=== PATIENT | male | born 1940 | race Caucasian/White ===

== ENCOUNTER 2020-04-27 09:53 | Inpatient (IN) | payer MEDICARE, OTHER ==
[~2020-04-27] VITALS: Ht 177.8 cm; Wt 75.3 kg
[2020-04-27] VITALS (10 sets, daily range): BP systolic 155–219; BP diastolic 58–93
[~2020-04-27 09:53] MED LIST: AMLO-258 PO; CETI10TA86 PO; CILO100T PO; DOXY100T2 PO; FURO20TA6 PO; GLIP10TA9 PO; HYDR-3420 PO; LISI-613 PO; METF-446 PO; METO50TA18 PO; PRED20TA3 PO; PRIM50TA23 PO
[2020-04-27 10:51] LABS: BASOPHILS % (AUTO) 0.9 % (0.0-5.0); EOSINOPHILS % (AUTO) 2.4 % (0.0-8.0); HEMATOCRIT 43.8 % (42-54); LYMPHOCYTES % (AUTO) 15.6 % (21.0-51.0); MEAN CORPUSCULAR HGB CONC 33.8 g/dL (32.0-36.0); MEAN CORPUSCULAR VOLUME 91.6 fL (79-99); MONOCYTES % (AUTO) 6.1 % (3.0-13.0); NEUTROPHILS % (AUTO) 74.5 % (40.0-77.0); PLATELET COUNT (AUTO) 320 K/uL (130-400); RED BLOOD CELL COUNT(AUTO) 4.78 MIL/uL (4.50-6.20); RED CELL DISTRIBUTION WIDTH 12.3 % (11.0-15.5); WHITE BLOOD COUNT (AUTO) 7.8 K/uL (4.8-10.8)
[2020-04-27 11:10] LABS: CREATININE 1.1 mg/dL (0.5-1.5); POTASSIUM 5.1 mmol/L (3.5-5.1)
[2020-04-27 11:16] LABS: ALBUMIN 3.4 g/dL (3.5-5.0); BILIRUBIN,TOTAL 0.3 mg/dL (0.2-1.0); TOTAL PROTEIN, SERUM 7.4 g/dL (6.0-8.3)
[2020-04-27 11:28] LABS: INR 0.88 (0.85-1.15); PARTIAL THROMBOPLASTIN TIME 27.2 SEC (26.3-35.5); PROTHROMBIN TIME 9.5 SEC (9.6-11.6)
[2020-04-27 12:31] LABS: APPEARANCE,URINE Clear (CLEAR); BILIRUBIN,URINE Negative (NEGATIVE); COLOR,URINE Yellow (YELLOW); GLUCOSE, URINE (UA) 500 mg/dL (NEGATIVE); KETONES,URINE Trace mg/dL (NEGATIVE); LEUKOCYTE ESTERASE ,URINE Negative (NEGATIVE); NITRATE,URINE Negative (NEGATIVE); OCCULT BLOOD,URINE Negative (NEGATIVE); PH,URINE 6.5 (5.0-8.0); PROTEIN,URINE 300 mg/dL (NEGATIVE); UROBILINOGEN,URINE 0.2 mg/dL (0.2-1.0)
[2020-04-27 13:54] LABS: BACTERIA,URINE Rare /HPF (None Seen); MUCUS,URINE Rare LPF (None Seen); RBC,URINE 0-1 /HPF (0-1); SQUAMOUS EPITHELIAL CELL,UR Rare /HPF (0-2); WBC,URINE 0-1 /HPF (0-1)
[2020-04-27] MEDS ORDERED: HYDRALAZINE HCL 20 MG/ML VIAL IV STA (14:58)
[2020-04-27] MEDS ORDERED: ALBUTEROL SULFATE 0.083% 2.5 MG/3 ML INH IH PRN (15:00)
[2020-04-27] MEDS: INSULIN HUMULIN R 100 UNIT/ML 3ML SQ SCH ×2 (16:30→22:00)
[2020-04-27] MEDS ORDERED: HYDRALAZINE HCL 10 MG TABLET ONE (17:23)
[2020-04-27] MEDS: HYDRALAZINE HCL 10 MG TABLET PO SCH (21:12)
[2020-04-27] MEDS ORDERED: ENALAPRILAT DIHYDRATE 1.25MG/ML 1ML VIAL IV SCH (21:45)
[2020-04-28] VITALS (50 sets, daily range): BP systolic 138–203; BP diastolic 46–96
[2020-04-28] MEDS ORDERED: NICARDIPINE HCL 25 MG/10 ML ML IV ONE (01:33)
[2020-04-28 04:04] LABS: BASOPHILS % (AUTO) 0.8 % (0.0-5.0); HEMATOCRIT 39.6 % (42-54); LYMPHOCYTES % (AUTO) 12.4 % (21.0-51.0); MEAN CORPUSCULAR HEMOGLOBIN 30.9 pg (27.0-33.0); MEAN CORPUSCULAR HGB CONC 33.8 g/dL (32.0-36.0); MEAN CORPUSCULAR VOLUME 91.2 fL (79-99); MONOCYTES % (AUTO) 7.8 % (3.0-13.0); NEUTROPHILS % (AUTO) 76.6 % (40.0-77.0); PLATELET COUNT (AUTO) 294 K/uL (130-400); RED BLOOD CELL COUNT(AUTO) 4.34 MIL/uL (4.50-6.20); RED CELL DISTRIBUTION WIDTH 12.1 % (11.0-15.5); WHITE BLOOD COUNT (AUTO) 7.9 K/uL (4.8-10.8)
[2020-04-28] MEDS: INSULIN HUMULIN R 100 UNIT/ML 3ML SQ SCH ×4 (05:56→23:01)
[2020-04-28] MEDS: FAMOTIDINE/PF 20 MG/2 ML VIAL IV SCH (07:55)
[2020-04-28] MEDS: HYDRALAZINE HCL 10 MG TABLET PO SCH (07:55)
[2020-04-28] MEDS: NICARDIPINE HCL 25 MG in SODIUM CHLORIDE 0.9% 240 ML IV PRN ×2 (08:57→16:30)
[2020-04-28] MEDS ORDERED: AMLODIPINE BESYLATE 5 MG TAB PO SCH (09:00)
[2020-04-28] MEDS: NIFEDIPINE 10 MG CAP PO SCH ×2 (13:23→20:33)
[2020-04-28] MEDS ORDERED: HYDRALAZINE HCL 10 MG TABLET PO SCH (14:00)
[2020-04-28 15:29] LABS: AMPHET/METH SCREEN,URINE NEGATIVE (NEGATIVE); BARBITURATE SCREEN, URINE NEGATIVE (NEGATIVE); BENZODIAZEPINES SCREEN,URINE NEGATIVE (NEGATIVE); CANNABINOID SCREEN,URINE NEGATIVE (NEGATIVE); COCAINE SCREEN,URINE NEGATIVE (NEGATIVE); OPIATE SCREEN,URINE NEGATIVE (NEGATIVE); PHENCYCLIDINE SCREEN,URINE NEGATIVE (NEGATIVE)
[2020-04-28] MEDS: HYDRALAZINE HCL 25 MG TABLET PO SCH (20:33)
[2020-04-28] MEDS: ENALAPRILAT DIHYDRATE 1.25MG/ML 1ML VIAL IV PRN (23:55)
[2020-04-29] VITALS (40 sets, daily range): BP systolic 123–183; BP diastolic 44–101
[2020-04-29 04:00] LABS: HEMATOCRIT 42.7 % (42-54); MEAN CORPUSCULAR HEMOGLOBIN 31.5 pg (27.0-33.0); MEAN CORPUSCULAR HGB CONC 34.7 g/dL (32.0-36.0); MEAN CORPUSCULAR VOLUME 90.9 fL (79-99); RED BLOOD CELL COUNT(AUTO) 4.7 MIL/uL (4.50-6.20); RED CELL DISTRIBUTION WIDTH 11.9 % (11.0-15.5); WHITE BLOOD COUNT (AUTO) 7.4 K/uL (4.8-10.8)
[2020-04-29 04:17] LABS: CARBON DIOXIDE 27 mmol/L (21-32); CHLORIDE 106 mmol/L (101-111); CREATININE 1.2 mg/dL (0.5-1.5); GLOMERULAR FILTR. RATE CALC 62 mL/min (>60); GLUCOSE,RANDOM 88 mg/dL (70-105); POTASSIUM 3.5 mmol/L (3.5-5.1); SODIUM SERUM 142 mmol/L (136-145); THYROID STIMULATING HORMONE 1.74 uIU/mL (0.36-3.74); UREA NITROGEN, BLOOD 28 mg/dL (7-18)
[2020-04-29] MEDS: ENALAPRILAT DIHYDRATE 1.25MG/ML 1ML VIAL IV PRN (05:42)
[2020-04-29] MEDS: HYDRALAZINE HCL 25 MG TABLET PO SCH ×2 (05:47→13:05)
[2020-04-29] MEDS: INSULIN HUMULIN R 100 UNIT/ML 3ML SQ SCH ×4 (07:30→21:00)
[2020-04-29] MEDS ORDERED: LISI40TA4 PO (07:50)
[2020-04-29] MEDS: FAMOTIDINE/PF 20 MG/2 ML VIAL IV SCH (08:43)
[2020-04-29] MEDS: NIFEDIPINE 10 MG CAP PO SCH ×2 (08:43→13:05)
[2020-04-29] MEDS: NICARDIPINE HCL 25 MG in SODIUM CHLORIDE 0.9% 240 ML IV PRN ×3 (11:51→20:50)
[2020-04-29] MEDS ORDERED: FUROSEMIDE 10 MG/ML 2ML VIAL IV SCH (14:52)
[2020-04-29] MEDS: SPIRONOLACTONE 25 MG TAB PO SCH (14:56)
[2020-04-29] MEDS: CLOPIDOGREL BISULFATE 75 MG TAB PO SCH (14:56)
[2020-04-29] MEDS: LOSARTAN 100 MG TABLET PO SCH (14:56)
[2020-04-29] MEDS: ENOXAPARIN SODIUM 40 MG/0.4 ML SYRINGE SQ SCH (15:04)
[2020-04-29] MEDS: METFORMIN HCL 500 MG TABLET PO SCH (16:45)
[2020-04-29] MEDS: GLIPIZIDE 5 MG TABLET PO SCH (16:45)
[2020-04-29] MEDS: MINOXIDIL 2.5 MG TAB PO SCH ×2 (17:41→20:32)
[2020-04-29] MEDS: ATORVASTATIN CALCIUM 40 MG TABLET PO SCH (20:28)
[2020-04-29] MEDS ORDERED: COMPOUND IV MISC 1 EACH IVSOLN MISC PRN (20:30)
[2020-04-29] MEDS: PRIMIDONE 50 MG TAB PO SCH (20:32)
[2020-04-29] MEDS: CILOSTAZOL 100 MG TAB PO SCH (20:32)
[2020-04-29] MEDS ORDERED: PRIMIDONE 50 MG TAB PO SCH (21:00)
[2020-04-29] MEDS ORDERED: METOPROLOL TARTRATE 50 MG TAB PO SCH (21:00)
[2020-04-30] VITALS (73 sets, daily range): BP systolic 122–184; BP diastolic 46–102
[2020-04-30 03:31] LABS: HEMATOCRIT 37.9 % (42-54); MEAN CORPUSCULAR HEMOGLOBIN 31.1 pg (27.0-33.0); MEAN CORPUSCULAR HGB CONC 33.8 g/dL (32.0-36.0); MEAN CORPUSCULAR VOLUME 92.2 fL (79-99); RED BLOOD CELL COUNT(AUTO) 4.11 MIL/uL (4.50-6.20); RED CELL DISTRIBUTION WIDTH 12.4 % (11.0-15.5); WHITE BLOOD COUNT (AUTO) 7.3 K/uL (4.8-10.8)
[2020-04-30 04:07] LABS: CREATININE 1.2 mg/dL (0.5-1.5); POTASSIUM 3.9 mmol/L (3.5-5.1)
[2020-04-30] MEDS: NICARDIPINE HCL 25 MG in SODIUM CHLORIDE 0.9% 240 ML IV PRN ×2 (04:14→13:18)
[2020-04-30] MEDS ORDERED: FUROSEMIDE 10 MG/ML 2ML VIAL IV SCH (05:00)
[2020-04-30] MEDS: INSULIN HUMULIN R 100 UNIT/ML 3ML SQ SCH ×4 (06:30→21:36)
[2020-04-30] MEDS: GLIPIZIDE 5 MG TABLET PO SCH ×2 (07:30→16:52)
[2020-04-30] MEDS: METFORMIN HCL 500 MG TABLET PO SCH ×2 (07:30→16:51)
[2020-04-30] MEDS: FAMOTIDINE/PF 20 MG/2 ML VIAL IV SCH (08:15)
[2020-04-30] MEDS: CILOSTAZOL 100 MG TAB PO SCH ×2 (08:16→21:39)
[2020-04-30] MEDS: AMLODIPINE BESYLATE 5 MG TAB PO SCH (08:16)
[2020-04-30] MEDS: ENOXAPARIN SODIUM 40 MG/0.4 ML SYRINGE SQ SCH (08:16)
[2020-04-30] MEDS: SPIRONOLACTONE 25 MG TAB PO SCH (08:16)
[2020-04-30] MEDS: CLOPIDOGREL BISULFATE 75 MG TAB PO SCH (08:17)
[2020-04-30] MEDS: PRIMIDONE 50 MG TAB PO SCH ×2 (08:18→21:40)
[2020-04-30] MEDS: MINOXIDIL 2.5 MG TAB PO SCH ×2 (08:40→21:38)
[2020-04-30] MEDS: LOSARTAN 100 MG TABLET PO SCH (08:40)
[2020-04-30] MEDS ORDERED: LISINOPRIL 40 MG TABLET PO SCH (09:00)
[2020-04-30] MEDS ORDERED: VANCOMYCIN 1GM+NS 250ML 250 ML IV PRN (11:30)
[2020-04-30] MEDS ORDERED: CEFAZOLIN SODIUM 1 GM VIAL ONE (14:26)
[2020-04-30] MEDS ORDERED: BUPIVACAINE/PF 0.25% 30ML VIAL IJ ONE (14:26)
[2020-04-30] MEDS ORDERED: IOHEXOL-350 50ML VIAL IV ONE (14:27)
[2020-04-30] MEDS ORDERED: MIDAZOLAM HCL 1 MG/ML 2ML VIAL ONE (14:27)
[2020-04-30] MEDS ORDERED: LIDOCAINE HCL 1% MDV 50ML VIAL ONE (14:28)
[2020-04-30] MEDS ORDERED: FENTANYL CITRATE PF 50 MCG/1 ML 2ML VIAL ONE (14:28)
[2020-04-30] MEDS ORDERED: VANCOMYCIN 1GM+NS 250ML 500 ML IV ONE (14:47)
[2020-04-30] MEDS ORDERED: OCTYL 2-CYANOACRYLATE 1 EACH TP ONE (15:30)
[2020-04-30] MEDS ORDERED: CARVEDILOL 12.5 MG TABLET PO ONE (17:45)
[2020-04-30] MEDS ORDERED: CARVEDILOL 12.5 MG TABLET PO SCH (18:00)
[2020-04-30] MEDS: ATORVASTATIN CALCIUM 40 MG TABLET PO SCH (21:39)
[2020-04-30] MEDS: CARVEDILOL 12.5 MG TABLET PO SCH (21:39)
[2020-05-01] VITALS (36 sets, daily range): BP systolic 110–183; BP diastolic 37–94
[2020-05-01] MEDS: GLIPIZIDE 5 MG TABLET PO SCH ×2 (06:29→16:29)
[2020-05-01] MEDS: INSULIN HUMULIN R 100 UNIT/ML 3ML SQ SCH ×4 (06:31→21:00)
[2020-05-01] MEDS: FAMOTIDINE/PF 20 MG/2 ML VIAL IV SCH (07:40)
[2020-05-01] MEDS: AMLODIPINE BESYLATE 5 MG TAB PO SCH (07:40)
[2020-05-01] MEDS: METFORMIN HCL 500 MG TABLET PO SCH ×2 (07:40→16:29)
[2020-05-01] MEDS: LOSARTAN 100 MG TABLET PO SCH (07:40)
[2020-05-01] MEDS: PRIMIDONE 50 MG TAB PO SCH ×2 (08:07→21:41)
[2020-05-01] MEDS: SPIRONOLACTONE 25 MG TAB PO SCH (08:07)
[2020-05-01] MEDS: CARVEDILOL 12.5 MG TABLET PO SCH ×2 (08:08→21:41)
[2020-05-01] MEDS: CLOPIDOGREL BISULFATE 75 MG TAB PO SCH (08:08)
[2020-05-01] MEDS: ENOXAPARIN SODIUM 40 MG/0.4 ML SYRINGE SQ SCH (08:09)
[2020-05-01] MEDS: MINOXIDIL 2.5 MG TAB PO SCH ×2 (08:48→21:40)
[2020-05-01] MEDS: CILOSTAZOL 100 MG TAB PO SCH ×2 (08:48→21:41)
[2020-05-01] MEDS: ENALAPRILAT DIHYDRATE 1.25MG/ML 1ML VIAL IV PRN (17:12)
[2020-05-01] MEDS: ATORVASTATIN CALCIUM 40 MG TABLET PO SCH (21:41)
[2020-05-02] VITALS (21 sets, daily range): BP systolic 119–184; BP diastolic 46–100
[2020-05-02] MEDS: INSULIN HUMULIN R 100 UNIT/ML 3ML SQ SCH ×4 (06:25→21:00)
[2020-05-02] MEDS: GLIPIZIDE 5 MG TABLET PO SCH ×2 (06:27→15:48)
[2020-05-02] MEDS: SPIRONOLACTONE 25 MG TAB PO SCH (07:54)
[2020-05-02] MEDS: MINOXIDIL 2.5 MG TAB PO SCH ×2 (07:55→21:36)
[2020-05-02] MEDS: METFORMIN HCL 500 MG TABLET PO SCH ×2 (07:55→15:49)
[2020-05-02] MEDS: LOSARTAN 100 MG TABLET PO SCH (07:55)
[2020-05-02] MEDS: PRIMIDONE 50 MG TAB PO SCH ×2 (07:55→21:36)
[2020-05-02] MEDS: AMLODIPINE BESYLATE 5 MG TAB PO SCH (07:56)
[2020-05-02] MEDS: CLOPIDOGREL BISULFATE 75 MG TAB PO SCH (07:56)
[2020-05-02] MEDS: CARVEDILOL 12.5 MG TABLET PO SCH ×2 (07:56→21:36)
[2020-05-02] MEDS: CILOSTAZOL 100 MG TAB PO SCH ×2 (07:57→21:38)
[2020-05-02] MEDS: FAMOTIDINE/PF 20 MG/2 ML VIAL IV SCH (07:57)
[2020-05-02] MEDS: ENOXAPARIN SODIUM 40 MG/0.4 ML SYRINGE SQ SCH (07:58)
[2020-05-02] MEDS: ENALAPRILAT DIHYDRATE 1.25MG/ML 1ML VIAL IV PRN (18:26)
[2020-05-02] MEDS: ATORVASTATIN CALCIUM 40 MG TABLET PO SCH (21:35)
[2020-05-03] VITALS (22 sets, daily range): BP systolic 119–201; BP diastolic 56–93
[2020-05-03] MEDS: GLIPIZIDE 5 MG TABLET PO SCH ×2 (07:13→17:18)
[2020-05-03] MEDS: METFORMIN HCL 500 MG TABLET PO SCH ×2 (07:13→17:17)
[2020-05-03] MEDS: INSULIN HUMULIN R 100 UNIT/ML 3ML SQ SCH ×4 (07:14→21:00)
[2020-05-03] MEDS ORDERED: FAMOTIDINE 20MG TAB 20 MG TAB ONE (08:45)
[2020-05-03] MEDS: FAMOTIDINE/PF 20 MG/2 ML VIAL IV SCH (09:00)
[2020-05-03] MEDS: MINOXIDIL 2.5 MG TAB PO SCH ×2 (09:14→20:40)
[2020-05-03] MEDS: CLOPIDOGREL BISULFATE 75 MG TAB PO SCH (09:14)
[2020-05-03] MEDS: CARVEDILOL 12.5 MG TABLET PO SCH ×2 (09:14→20:41)
[2020-05-03] MEDS: LOSARTAN 100 MG TABLET PO SCH (09:14)
[2020-05-03] MEDS: AMLODIPINE BESYLATE 5 MG TAB PO SCH (09:14)
[2020-05-03] MEDS: SPIRONOLACTONE 25 MG TAB PO SCH (09:14)
[2020-05-03] MEDS: CILOSTAZOL 100 MG TAB PO SCH ×2 (09:14→20:59)
[2020-05-03] MEDS: PRIMIDONE 50 MG TAB PO SCH ×2 (09:14→20:41)
[2020-05-03] MEDS: ENOXAPARIN SODIUM 40 MG/0.4 ML SYRINGE SQ SCH (09:15)
[2020-05-03] MEDS: ENALAPRILAT DIHYDRATE 1.25MG/ML 1ML VIAL IV PRN ×2 (12:16→15:09)
[2020-05-03] MEDS ORDERED: HYDRALAZINE HCL 10 MG TABLET ONE (16:46)
[2020-05-03] MEDS: HYDRALAZINE HCL 10 MG TABLET PO SCH ×2 (17:00→20:40)
[2020-05-03] MEDS: ATORVASTATIN CALCIUM 40 MG TABLET PO SCH (20:41)
[2020-05-04] VITALS (8 sets, daily range): BP systolic 131–154; BP diastolic 54–87
[2020-05-04] MEDS: INSULIN HUMULIN R 100 UNIT/ML 3ML SQ SCH (07:30)
[2020-05-04] MEDS ORDERED: HYDR-3420 PO (07:47)
[2020-05-04] MEDS ORDERED: CARV12.580 PO (07:47)
[2020-05-04] MEDS ORDERED: CLOP75TA14 PO (07:47)
[2020-05-04] MEDS ORDERED: LOSA100T2 PO (07:47)
[2020-05-04] MEDS ORDERED: MINO2.5 PO (07:47)
[2020-05-04] MEDS ORDERED: SPIR25TA PO (07:47)
[2020-05-04] MEDS: MINOXIDIL 2.5 MG TAB PO SCH (08:39)
[2020-05-04] MEDS: SPIRONOLACTONE 25 MG TAB PO SCH (08:39)
[2020-05-04] MEDS: CARVEDILOL 12.5 MG TABLET PO SCH (08:40)
[2020-05-04] MEDS: HYDRALAZINE HCL 10 MG TABLET PO SCH (08:40)
[2020-05-04] MEDS: CLOPIDOGREL BISULFATE 75 MG TAB PO SCH (08:40)
[2020-05-04] MEDS: PRIMIDONE 50 MG TAB PO SCH (08:40)
[2020-05-04] MEDS: METFORMIN HCL 500 MG TABLET PO SCH (08:40)
[2020-05-04] MEDS: LOSARTAN 100 MG TABLET PO SCH (08:41)
[2020-05-04] MEDS: GLIPIZIDE 5 MG TABLET PO SCH (08:41)
[2020-05-04] MEDS: AMLODIPINE BESYLATE 5 MG TAB PO SCH (08:41)
[2020-05-04] MEDS: ENOXAPARIN SODIUM 40 MG/0.4 ML SYRINGE SQ SCH (08:42)
[2020-05-04] MEDS ORDERED: FAMOTIDINE 20MG TAB 20 MG TAB PO SCH (09:00)
[2020-05-18] MEDS ORDERED: AMLO-257 PO (23:55)
[2020-05-18] MEDS ORDERED: POTA20TA82 PO (23:55)
[2020-05-18] MEDS ORDERED: PRIM50TA23 PO (23:55)
== END 2020-05-04 11:00 | disposition home or self-care (01) | DRG 242 ==
LOC: EDH 09:53 → EDHIP 14:03 → 2DH 20:56
PROVIDERS: ADMIT Hospitalist; ATTEND Hospitalist
PROC: 0JH606Z Insertion of Pacemaker, Dual Chamber into Chest Subcutaneous Tissue and Fascia, Open Approach (ICD-10-PCS; principal; 2020-04-30)
PROC: 02HK3JZ Insertion of Pacemaker Lead into Right Ventricle, Percutaneous Approach (ICD-10-PCS; 2020-04-30)
PROC: 02H63JZ Insertion of Pacemaker Lead into Right Atrium, Percutaneous Approach (ICD-10-PCS; 2020-04-30)
DX: I44.1 Atrioventricular block, second degree (principal); I50.33 Acute on chronic diastolic (congestive) heart failure; I16.1 Hypertensive emergency; J98.11 Atelectasis; I11.0 Hypertensive heart disease with heart failure; R00.1 Bradycardia, unspecified; J44.9 Chronic obstructive pulmonary disease, unspecified; I25.10 Atherosclerotic heart disease of native coronary artery without angina pectoris; I27.20 Pulmonary hypertension, unspecified; E11.51 Type 2 diabetes mellitus with diabetic peripheral angiopathy without gangrene; E78.5 Hyperlipidemia, unspecified; G25.0 Essential tremor; H91.93 Unspecified hearing loss, bilateral; I70.0 Atherosclerosis of aorta; Z60.2 Problems related to living alone; Z88.6 Allergy status to analgesic agent; Z87.891 Personal history of nicotine dependence; Z79.02 Long term (current) use of antithrombotics/antiplatelets; Z79.84 Long term (current) use of oral hypoglycemic drugs; Z79.899 Other long term (current) drug therapy; Z97.4 Presence of external hearing-aid; Z82.3 Family history of stroke; Z82.49 Family history of ischemic heart disease and other diseases of the circulatory system
CPT/HCPCS: 33208; 36415; 71045; 80048; 80053; 80061; 80305; 81001; 82550; 82948; 83880; 84145; 84443; 84484; 85025; 85027; 85610; 85730; 93005; 93306; 93925; 93975; 94664; 99156; 99157; C1785; J0690; J1650; J1815; J1940; J2250; J3010; J3370; J3490; J7050; Q9967

== ENCOUNTER 2020-05-29 22:08 | Inpatient (IN) | payer OTHER ==
[~2020-05-29] VITALS: Ht 177.8 cm; Wt 71.1 kg
[~2020-05-29 22:08] MED LIST changes: +AMLO-257 PO; -AMLO-258 PO; +CARV12.580 PO; -CETI10TA86 PO; +CLOP75TA14 PO; -DOXY100T2 PO; -FURO20TA6 PO; -HYDR-3420 PO; -LISI-613 PO; +LOSA100T2 PO; -METO50TA18 PO; +MINO2.5 PO; +POTA20TA82 PO; -PRED20TA3 PO; +SPIR25TA PO
[2020-05-29] MEDS ORDERED: METHYLPREDNISOLONE SOD SUCC 125MG/2ML VIAL ONE (22:31)
[2020-05-29 22:35] LABS: ABG BASE EXCESS -4.3 mmol/L (-2.0-3.0); ABG HCO3 19.7 mmol/L (21.0-28.0); ABG OXYGEN SATURATION 96.5 % (95.0-99.0); ABG PCO2 34 mmHg (35-48)
[2020-05-29] MEDS ORDERED: IPRATROPIUM/ALBUTEROL SULFATE 3 ML SOLUTION IH ONE (22:38)
[2020-05-29 22:43] LABS: BASOPHILS % (AUTO) 0.5 % (0.0-5.0); EOSINOPHILS % (AUTO) 0.9 % (0.0-8.0); HEMATOCRIT 37.1 % (42-54); LYMPHOCYTES % (AUTO) 7.6 % (21.0-51.0); MEAN CORPUSCULAR HEMOGLOBIN 31.9 pg (27.0-33.0); MEAN CORPUSCULAR HGB CONC 33.7 g/dL (32.0-36.0); MEAN CORPUSCULAR VOLUME 94.6 fL (79-99); MONOCYTES % (AUTO) 4.8 % (3.0-13.0); NEUTROPHILS % (AUTO) 85.6 % (40.0-77.0); PLATELET COUNT (AUTO) 281 K/uL (130-400); RED BLOOD CELL COUNT(AUTO) 3.92 MIL/uL (4.50-6.20); RED CELL DISTRIBUTION WIDTH 12.4 % (11.0-15.5)
[2020-05-29 22:50] LABS: ALBUMIN 3.1 g/dL (3.5-5.0); BILIRUBIN,TOTAL 0.4 mg/dL (0.2-1.0); CREATININE 1.2 mg/dL (0.5-1.5); POTASSIUM 4.3 mmol/L (3.5-5.1); TOTAL PROTEIN, SERUM 6.7 g/dL (6.0-8.3)
[2020-05-29 22:52] LABS: APPEARANCE,URINE Clear (CLEAR); BILIRUBIN,URINE Negative (NEGATIVE); COLOR,URINE Yellow (YELLOW); GLUCOSE, URINE (UA) >=1000 mg/dL (NEGATIVE); KETONES,URINE Negative (NEGATIVE); LEUKOCYTE ESTERASE ,URINE Negative (NEGATIVE); NITRATE,URINE Negative (NEGATIVE); OCCULT BLOOD,URINE Negative (NEGATIVE); PROTEIN,URINE POS 2+ mg/dL (NEGATIVE); UROBILINOGEN,URINE 0.2 mg/dL (0.2-1.0)
[2020-05-29 23:04] LABS: INR 0.91 (0.85-1.15); PROTHROMBIN TIME 9.8 SEC (9.6-11.6)
[2020-05-29 23:05] LABS: BACTERIA,URINE None Seen /HPF (None Seen); MUCUS,URINE Rare LPF (None Seen); RBC,URINE None Seen /HPF (0-1); SQUAMOUS EPITHELIAL CELL,UR Rare /HPF (0-2); WBC,URINE None Seen /HPF (0-1); YEAST,URINE BUDDING None Seen /HPF (None Seen)
[2020-05-29 23:05] LABS: PARTIAL THROMBOPLASTIN TIME 25.6 SEC (26.3-35.5)
[2020-05-30] MEDS ORDERED: ACETAMINOPHEN 325 MG TAB PO PRN ×2 (00:15)
[2020-05-30] MEDS ORDERED: GUAIFENESIN-DM 200/20 MG 10 ML PO PRN (00:15)
[2020-05-30] MEDS ORDERED: ONDANSETRON HCL 4 MG/2 ML VIAL IV PRN (00:15)
[2020-05-30] MEDS ORDERED: LEVOFLOXACIN 750 MG/D5W 150 ML 150 ML ONE (00:31)
[2020-05-30] MEDS ORDERED: DEXTROSE 50%-WATER 50 ML DISP.SYRIN IV PRN ×2 (01:30→13:00)
[2020-05-30] MEDS ORDERED: POTASSIUM CHLORIDE 10% ELIXIR 20 MEQ/15 ML UDCUP PO PRN (01:30)
[2020-05-30] MEDS ORDERED: MAGNESIUM 2GM PREMIX 50ML 50 ML IV PRN (01:30)
[2020-05-30] MEDS ORDERED: POTASSIUM CHLORIDE 20MEQ/100ML 100 ML IV PRN (01:30)
[2020-05-30] MEDS ORDERED: GLUCAGON 1MG KIT 1 MG ML IM PRN ×2 (01:30→13:00)
[2020-05-30] MEDS ORDERED: LIDOCAINE HCL-MPF 1% 2ML VIAL IV PRN (01:30)
[2020-05-30] MEDS: LEVOFLOXACIN 500 MG/D5W 100 ML 100 ML IV SCH (02:00)
[2020-05-30] MEDS ORDERED: IPRATROPIUM 0.5 MG/2.5 ML INH IH SCH (06:00)
[2020-05-30 07:30] LABS: BASOPHILS % (AUTO) 0.1 % (0.0-5.0); HEMATOCRIT 34.5 % (42-54); LYMPHOCYTES % (AUTO) 3.1 % (21.0-51.0); MEAN CORPUSCULAR HEMOGLOBIN 30.7 pg (27.0-33.0); MEAN CORPUSCULAR HGB CONC 32.8 g/dL (32.0-36.0); MEAN CORPUSCULAR VOLUME 93.8 fL (79-99); MONOCYTES % (AUTO) 1.6 % (3.0-13.0); NEUTROPHILS % (AUTO) 94.8 % (40.0-77.0); PLATELET COUNT (AUTO) 254 K/uL (130-400); RED BLOOD CELL COUNT(AUTO) 3.68 MIL/uL (4.50-6.20); RED CELL DISTRIBUTION WIDTH 12.2 % (11.0-15.5)
[2020-05-30] MEDS ORDERED: INSULIN HUMULIN R 100 UNIT/ML 3ML SQ SCH (07:30)
[2020-05-30 08:11] LABS: B-TYPE NATRIURETIC PEPTIDE 1520 pg/mL (0-100)
[2020-05-30 08:20] LABS: ALBUMIN 2.6 g/dL (3.5-5.0); BILIRUBIN,TOTAL 0.3 mg/dL (0.2-1.0); CREATININE 1.1 mg/dL (0.5-1.5); MAGNESIUM 1.8 mg/dL (1.80-2.40); POTASSIUM 4.7 mmol/L (3.5-5.1); TOTAL PROTEIN, SERUM 5.8 g/dL (6.0-8.3)
[2020-05-30] MEDS: AMLODIPINE BESYLATE 5 MG TAB PO SCH (09:00)
[2020-05-30] MEDS: FAMOTIDINE 20MG TAB 20 MG TAB PO SCH ×2 (09:00→21:00)
[2020-05-30] MEDS ORDERED: FAMOTIDINE 20MG TAB 20 MG TAB ONE (09:32)
[2020-05-30] MEDS ORDERED: AMLODIPINE BESYLATE 5 MG TAB ONE (09:33)
[2020-05-30] MEDS ORDERED: FUROSEMIDE 10 MG/ML 4ML VIAL ONE (09:33)
[2020-05-30 09:49] LABS: CRP QUANTITATIVE 32.1 mg/L (0.00-9.0)
[2020-05-30] MEDS ORDERED: MINO2.5T3 PO (12:30)
[2020-05-30] MEDS ORDERED: INSULIN HUMULIN R 100 UNIT/ML 3ML ONE (12:59)
[2020-05-30] MEDS ORDERED: MAGNESIUM 2GM PREMIX 50ML 50 ML IV ONE (16:11)
[2020-05-30] MEDS ORDERED: ALBUTEROL INHALER 90MCG/INH IH PRN (16:30)
[2020-05-31] MEDS: LEVOFLOXACIN 500 MG/D5W 100 ML 100 ML IV SCH (02:00)
[2020-05-31 07:40] LABS: BASOPHILS % (AUTO) 0.6 % (0.0-5.0); EOSINOPHILS % (AUTO) 1.4 % (0.0-8.0); HEMATOCRIT 33.8 % (42-54); LYMPHOCYTES % (AUTO) 13.1 % (21.0-51.0); MEAN CORPUSCULAR HEMOGLOBIN 31.5 pg (27.0-33.0); MEAN CORPUSCULAR HGB CONC 33.1 g/dL (32.0-36.0); MEAN CORPUSCULAR VOLUME 95.2 fL (79-99); MONOCYTES % (AUTO) 5.8 % (3.0-13.0); NEUTROPHILS % (AUTO) 78.8 % (40.0-77.0); PLATELET COUNT (AUTO) 282 K/uL (130-400); RED BLOOD CELL COUNT(AUTO) 3.55 MIL/uL (4.50-6.20); RED CELL DISTRIBUTION WIDTH 12.6 % (11.0-15.5)
[2020-05-31 07:43] LABS: POTASSIUM 3.9 mmol/L (3.5-5.1)
[2020-05-31] MEDS ORDERED: FAMOTIDINE 20MG TAB 20 MG TAB ONE ×2 (08:05→20:45)
[2020-05-31] MEDS ORDERED: AMLODIPINE BESYLATE 5 MG TAB ONE (08:06)
[2020-05-31] MEDS ORDERED: FUROSEMIDE 10 MG/ML 4ML VIAL ONE ×2 (08:06→20:45)
[2020-05-31] MEDS ORDERED: INSULIN HUMULIN R 100 UNIT/ML 3ML ONE ×2 (08:52→18:25)
[2020-05-31] MEDS: AMLODIPINE BESYLATE 5 MG TAB PO SCH (09:00)
[2020-05-31] MEDS ORDERED: IPRATROPIUM 0.5 MG/2.5 ML INH IH ONE (14:41)
[2020-05-31] MEDS: IPRATROPIUM 0.5 MG/2.5 ML INH IH SCH (19:14)
[2020-05-31] MEDS: FAMOTIDINE 20MG TAB 20 MG TAB PO SCH (21:00)
[2020-05-31] MEDS: MONTELUKAST SODIUM 10 MG TAB PO SCH (21:00)
[2020-05-31] MEDS: INSULIN R PO SS2 SQ SCH (21:00)
[2020-05-31] MEDS: PRIMIDONE 50 MG TAB PO SCH (21:00)
[2020-05-31] MEDS: INSULIN HUMULIN R 100 UNIT/ML 3ML SQ SCH (21:00)
[2020-05-31] MEDS: FUROSEMIDE 10 MG/ML 4ML VIAL IVP SCH (21:00)
[2020-05-31 22:05] VITALS: BP 147/96
[2020-06-01] MEDS: IPRATROPIUM 0.5 MG/2.5 ML INH IH SCH ×4 (00:32→18:30)
[2020-06-01] MEDS: LEVOFLOXACIN 500 MG/D5W 100 ML 100 ML IV SCH (02:25)
[2020-06-01 04:59] VITALS: BP 155/79
[2020-06-01 05:11] LABS: BASOPHILS % (AUTO) 0.8 % (0.0-5.0); EOSINOPHILS % (AUTO) 3.1 % (0.0-8.0); HEMATOCRIT 35.1 % (42-54); LYMPHOCYTES % (AUTO) 15.1 % (21.0-51.0); MEAN CORPUSCULAR HEMOGLOBIN 31.6 pg (27.0-33.0); MEAN CORPUSCULAR HGB CONC 33.9 g/dL (32.0-36.0); MEAN CORPUSCULAR VOLUME 93.1 fL (79-99); MONOCYTES % (AUTO) 6.8 % (3.0-13.0); NEUTROPHILS % (AUTO) 73.9 % (40.0-77.0); PLATELET COUNT (AUTO) 283 K/uL (130-400); RED BLOOD CELL COUNT(AUTO) 3.77 MIL/uL (4.50-6.20); RED CELL DISTRIBUTION WIDTH 12.4 % (11.0-15.5)
[2020-06-01 05:42] LABS: CREATININE 1.1 mg/dL (0.5-1.5); POTASSIUM 3.6 mmol/L (3.5-5.1)
[2020-06-01] MEDS: INSULIN HUMULIN R 100 UNIT/ML 3ML SQ SCH (06:05)
[2020-06-01] MEDS: POTASSIUM CHLORIDE 20 MEQ ERTAB PO PRN ×2 (06:07→07:55)
[2020-06-01] MEDS: INSULIN R PO SS2 SQ SCH ×4 (06:10→20:38)
[2020-06-01] MEDS: AMLODIPINE BESYLATE 5 MG TAB PO SCH (07:54)
[2020-06-01] MEDS: FAMOTIDINE 20MG TAB 20 MG TAB PO SCH ×2 (07:54→20:32)
[2020-06-01] MEDS: FUROSEMIDE 10 MG/ML 4ML VIAL IVP SCH (07:56)
[2020-06-01 08:56] VITALS: BP 152/78
[2020-06-01] MEDS: PRIMIDONE 50 MG TAB PO SCH ×3 (09:00→20:34)
[2020-06-01 10:15] LABS: B-TYPE NATRIURETIC PEPTIDE 1112 pg/mL (0-100)
[2020-06-01] MEDS ORDERED: BUMETANIDE 0.25 MG/ML 10 ML VIAL IV SCH (11:45)
[2020-06-01 12:37] VITALS: BP 154/84
[2020-06-01] MEDS ORDERED: COMPOUND IV REFRIGERATED 1 EACH IVSOLN MISC PRN (12:45)
[2020-06-01] MEDS ORDERED: COMPOUND IV MISC 1 EACH IVSOLN MISC PRN (13:00)
[2020-06-01] MEDS: CARVEDILOL 6.25 MG TABLET PO SCH ×2 (13:02→20:33)
[2020-06-01] MEDS: BUMETANIDE 0.25 MG/ML 10 ML 80 ML IV SCH (13:03)
[2020-06-01 17:08] VITALS: BP 148/82
[2020-06-01 19:37] VITALS: BP 152/94
[2020-06-01] MEDS: MONTELUKAST SODIUM 10 MG TAB PO SCH (20:33)
[2020-06-01 23:46] VITALS: BP 130/73
[2020-06-02] MEDS: IPRATROPIUM 0.5 MG/2.5 ML INH IH SCH ×5 (00:51→23:50)
[2020-06-02 03:40] VITALS: BP 151/90
[2020-06-02 05:39] LABS: HEMATOCRIT 41.6 % (42-54); MEAN CORPUSCULAR HEMOGLOBIN 31.1 pg (27.0-33.0); MEAN CORPUSCULAR HGB CONC 33.2 g/dL (32.0-36.0); MEAN CORPUSCULAR VOLUME 93.7 fL (79-99); RED BLOOD CELL COUNT(AUTO) 4.44 MIL/uL (4.50-6.20); RED CELL DISTRIBUTION WIDTH 12.1 % (11.0-15.5)
[2020-06-02 06:01] LABS: CARBON DIOXIDE 30 mmol/L (21-32); CHLORIDE 99 mmol/L (101-111); CREATININE 1.2 mg/dL (0.5-1.5); GLOMERULAR FILTR. RATE CALC 62 mL/min (>60); GLUCOSE,RANDOM 153 mg/dL (70-105); PHOSPHORUS 4.7 mg/dL (2.5-4.9); POTASSIUM 3.8 mmol/L (3.5-5.1); SODIUM SERUM 141 mmol/L (136-145); UREA NITROGEN, BLOOD 25 mg/dL (7-18)
[2020-06-02] MEDS: INSULIN R PO SS2 SQ SCH ×4 (06:44→20:28)
[2020-06-02] MEDS: CARVEDILOL 6.25 MG TABLET PO SCH ×2 (07:50→20:30)
[2020-06-02] MEDS: FAMOTIDINE 20MG TAB 20 MG TAB PO SCH ×2 (07:50→20:29)
[2020-06-02 08:00] VITALS: BP 143/75
[2020-06-02] MEDS: PRIMIDONE 50 MG TAB PO SCH ×2 (09:49→20:29)
[2020-06-02] MEDS: BUMETANIDE 0.25 MG/ML 10 ML 80 ML IV SCH (09:50)
[2020-06-02 11:04] VITALS: BP 130/77
[2020-06-02 16:27] VITALS: BP 139/80
[2020-06-02 20:00] VITALS: BP 136/76
[2020-06-02] MEDS: MONTELUKAST SODIUM 10 MG TAB PO SCH (20:29)
[2020-06-03] VITALS: BP 128/65
[2020-06-03 04:00] VITALS: BP 152/96
[2020-06-03 04:22] LABS: EOSINOPHILS % (AUTO) 3.1 % (0.0-8.0); HEMATOCRIT 39.1 % (42-54); LYMPHOCYTES % (AUTO) 23.5 % (21.0-51.0); MEAN CORPUSCULAR HGB CONC 33.8 g/dL (32.0-36.0); MEAN CORPUSCULAR VOLUME 91.8 fL (79-99); MONOCYTES % (AUTO) 9.9 % (3.0-13.0); NEUTROPHILS % (AUTO) 62.2 % (40.0-77.0); PLATELET COUNT (AUTO) 297 K/uL (130-400); RED BLOOD CELL COUNT(AUTO) 4.26 MIL/uL (4.50-6.20); WHITE BLOOD COUNT (AUTO) 5.8 K/uL (4.8-10.8)
[2020-06-03 04:41] LABS: ALBUMIN 2.7 g/dL (3.5-5.0); BILIRUBIN,TOTAL 0.4 mg/dL (0.2-1.0); CREATININE 1.6 mg/dL (0.5-1.5); POTASSIUM 3.3 mmol/L (3.5-5.1); TOTAL PROTEIN, SERUM 5.8 g/dL (6.0-8.3)
[2020-06-03 04:44] LABS: B-TYPE NATRIURETIC PEPTIDE 288 pg/mL (0-100)
[2020-06-03] MEDS: POTASSIUM CHLORIDE 20 MEQ ERTAB PO PRN (05:46)
[2020-06-03] MEDS: INSULIN R PO SS2 SQ SCH ×3 (06:24→16:28)
[2020-06-03] MEDS: IPRATROPIUM 0.5 MG/2.5 ML INH IH SCH ×2 (06:26→10:57)
[2020-06-03] MEDS: FAMOTIDINE 20MG TAB 20 MG TAB PO SCH (08:06)
[2020-06-03] MEDS: CARVEDILOL 6.25 MG TABLET PO SCH (08:07)
[2020-06-03 08:21] VITALS: BP 149/87
[2020-06-03] MEDS ORDERED: FUROSEMIDE 10 MG/ML 4ML VIAL IV SCH (09:00)
[2020-06-03] MEDS: PRIMIDONE 50 MG TAB PO SCH (11:04)
[2020-06-03 12:09] VITALS: BP 135/73
[2020-06-03] MEDS ORDERED: POTASSIUM CHLORIDE 20 MEQ ERTAB PO PRN (13:30)
[2020-06-03] MEDS ORDERED: POTASSIUM CHLORIDE 10% ELIXIR 20 MEQ/15 ML UDCUP PO PRN (13:30)
[2020-06-03] MEDS ORDERED: POTASSIUM CHLORIDE 10MEQ/100ML 100 ML IV PRN (13:30)
[2020-06-03] MEDS ORDERED: LIDOCAINE HCL-MPF 1% 2ML VIAL IV PRN (13:30)
[2020-06-03 16:20] VITALS: BP 134/73
== END 2020-06-03 17:21 | disposition home or self-care (01) | DRG 190 ==
LOC: EDH 22:08 → EDHIP 05-30 00:10 → 4CH 05-31 20:28
PROVIDERS: ADMIT Hospitalist; ATTEND Hospitalist
DX: J44.1 Chronic obstructive pulmonary disease with (acute) exacerbation (principal); I50.43 Acute on chronic combined systolic (congestive) and diastolic (congestive) heart failure; I11.0 Hypertensive heart disease with heart failure; E11.65 Type 2 diabetes mellitus with hyperglycemia; Z20.828 Contact with and (suspected) exposure to other viral communicable diseases; Z03.818 Encounter for observation for suspected exposure to other biological agents ruled out; Z95.0 Presence of cardiac pacemaker; Z82.3 Family history of stroke; Z82.49 Family history of ischemic heart disease and other diseases of the circulatory system; Z79.899 Other long term (current) drug therapy; Z79.84 Long term (current) use of oral hypoglycemic drugs; Z88.6 Allergy status to analgesic agent
CPT/HCPCS: 36415; 36600; 71045; 80048; 80053; 81001; 82728; 82803; 82948; 83605; 83615; 83735; 83880; 84100; 84132; 84145; 84484; 85025; 85027; 85378; 85610; 85730; 86140; 87040; 87426; 93005; 94640; 94664; G0378; J1815; J1940; J1956; J2930; J3475; J3490; U0003

== ENCOUNTER 2020-06-18 00:06 | Inpatient (IN) | payer OTHER ==
[~2020-06-18] VITALS: Ht 179.1 cm; Wt 73.3 kg
[~2020-06-18 00:06] MED LIST changes: -CARV12.580 PO; -LOSA100T2 PO; -MINO2.5 PO; +MINO2.5T3 PO; +POTA-202 PO; -POTA20TA82 PO; -SPIR25TA PO
[2020-06-18] MEDS ORDERED: SOLU-MEDROL 125MG VIAL ONE (00:18)
[2020-06-18 00:31] LABS: BASOPHILS % (AUTO) 0.8 % (0.0-5.0); EOSINOPHILS % (AUTO) 2.2 % (0.0-8.0); HEMATOCRIT 36.5 % (42-54); LYMPHOCYTES % (AUTO) 20.2 % (21.0-51.0); MEAN CORPUSCULAR HEMOGLOBIN 30.7 pg (27.0-33.0); MEAN CORPUSCULAR HGB CONC 32.9 g/dL (32.0-36.0); MEAN CORPUSCULAR VOLUME 93.4 fL (79-99); MONOCYTES % (AUTO) 7.7 % (3.0-13.0); NEUTROPHILS % (AUTO) 68.8 % (40.0-77.0); PLATELET COUNT (AUTO) 300 K/uL (130-400); RED BLOOD CELL COUNT(AUTO) 3.91 MIL/uL (4.50-6.20); RED CELL DISTRIBUTION WIDTH 12.3 % (11.0-15.5); WHITE BLOOD COUNT (AUTO) 6.4 K/uL (4.8-10.8)
[2020-06-18 00:51] LABS: CREATININE 1.3 mg/dL (0.5-1.5)
[2020-06-18 00:56] LABS: INR 0.97 (0.85-1.15); PROTHROMBIN TIME 10.4 SEC (9.6-11.6)
[2020-06-18 00:56] LABS: ALBUMIN 3.3 g/dL (3.5-5.0); BILIRUBIN,TOTAL 0.2 mg/dL (0.2-1.0); TOTAL PROTEIN, SERUM 6.6 g/dL (6.0-8.3)
[2020-06-18 00:57] LABS: PARTIAL THROMBOPLASTIN TIME 25.9 SEC (26.3-35.5)
[2020-06-18 00:59] LABS: ABG BASE EXCESS 0.5 mmol/L (-2.0-3.0); ABG HCO3 25.2 mmol/L (21.0-28.0); ABG OXYGEN SATURATION 96.5 % (95.0-99.0); ABG PCO2 41 mmHg (35-48)
[2020-06-18] MEDS ORDERED: FUROSEMIDE 20MG VIAL ONE ×3 (01:12→21:14)
[2020-06-18] MEDS ORDERED: ONDANSETRON 4MG INJ IV PRN (04:00)
[2020-06-18] MEDS ORDERED: NITROGLYCERIN 1GM OINT 1 INCH/1GM TD SCH (04:00)
[2020-06-18] MEDS: DOXYCYCLINE 100MG+NS 250ML 250 ML IV SCH ×2 (04:00→16:00)
[2020-06-18] MEDS ORDERED: BUMETANIDE 2.5MG/10ML VIAL IV SCH (04:00)
[2020-06-18] MEDS ORDERED: ACETAMINOPHEN 325 MG TAB PO PRN ×2 (04:00)
[2020-06-18] MEDS ORDERED: LOSARTAN 50 MG TABLET PO SCH (04:30)
[2020-06-18 05:15] LABS: HEMOGLOBIN A1C 10.6 % (4.0-6.0)
[2020-06-18] MEDS: FUROSEMIDE 20MG VIAL IV SCH ×3 (05:15→21:15)
[2020-06-18] MEDS ORDERED: DOXYCYCLINE 100MG+NS 250ML 250 ML IV ONE ×2 (05:23→15:45)
[2020-06-18 05:53] LABS: ALBUMIN 3.1 g/dL (3.5-5.0); CREATINE KINASE, TOTAL 24 U/L (21-232); MYOGLOBIN 31 ng/mL (10-92); PHOSPHORUS 2.8 mg/dL (2.5-4.9); TROPONIN I 0.06 ng/mL (0.00-0.06)
[2020-06-18] MEDS: INSULIN HUMULIN R 100 UNIT/ML 3ML SQ SCH ×4 (07:30→21:00)
[2020-06-18] MEDS ORDERED: ENOXAPARIN SODIUM 40 MG/0.4 ML SYRINGE SQ ONE (08:27)
[2020-06-18] MEDS ORDERED: LISINOPRIL 5 MG TABLET ONE (08:27)
[2020-06-18] MEDS ORDERED: CARVEDILOL 6.25 MG TABLET PO ONE (08:28)
[2020-06-18] MEDS ORDERED: FAMOTIDINE 20MG VIAL IV ONE ×2 (08:28→21:15)
[2020-06-18] MEDS ORDERED: INSULIN HUMULIN R 100 UNIT/ML 3ML ONE ×4 (08:28→22:11)
[2020-06-18] MEDS: CARVEDILOL 6.25 MG TABLET PO SCH ×2 (09:00→21:00)
[2020-06-18] MEDS ORDERED: LISINOPRIL 10 MG TABLET PO SCH (09:00)
[2020-06-18] MEDS: FAMOTIDINE 20MG VIAL IV SCH ×2 (09:00→21:00)
[2020-06-18] MEDS: ENOXAPARIN SODIUM 40 MG/0.4 ML SYRINGE SQ SCH (09:00)
[2020-06-18] MEDS ORDERED: METOPROLOL TARTRATE 25 MG TAB PO SCH (09:00)
[2020-06-18] MEDS ORDERED: NITROGLYCERIN 1GM OINT 1 INCH/1GM TD ONE ×2 (10:44→21:15)
[2020-06-18] MEDS: LOSARTAN 50 MG TABLET PO SCH (11:15)
[2020-06-18] MEDS: CLOPIDOGREL 75MG TAB PO SCH (11:15)
[2020-06-18] MEDS: SPIRONOLACTONE 25 MG TAB PO SCH (11:15)
[2020-06-18] MEDS ORDERED: LOSARTAN 50 MG TABLET ONE (11:31)
[2020-06-18] MEDS ORDERED: SPIRONOLACTONE 25 MG TAB ONE (11:31)
[2020-06-18] MEDS ORDERED: CLOPIDOGREL 75MG TAB ONE (11:31)
[2020-06-18 13:28] LABS: CREATINE KINASE, TOTAL 50 U/L (21-232); MYOGLOBIN 40 ng/mL (10-92); TROPONIN I < 0.04 ng/mL (0.00-0.06)
[2020-06-18] MEDS: BUDESONIDE 0.25 MG/2 ML INH IH SCH (18:00)
[2020-06-18 20:32] LABS: CREATINE KINASE, TOTAL 19 U/L (21-232); MYOGLOBIN 36 ng/mL (10-92); TROPONIN I < 0.04 ng/mL (0.00-0.06)
[2020-06-18] MEDS: SOLU-MEDROL 40MG VIAL IVP SCH (21:00)
[2020-06-18] MEDS: INSULIN GLARGINE 100 UNITS/ML 10 ML VIAL SQ SCH (21:00)
[2020-06-18] MEDS ORDERED: SOLU-MEDROL 40MG VIAL ONE (21:14)
[2020-06-18] MEDS ORDERED: CARVEDILOL 12.5 MG TABLET PO ONE (21:15)
[2020-06-19 01:20] VITALS: BP 159/87
[2020-06-19] MEDS: DOXYCYCLINE 100MG+NS 250ML 250 ML IV SCH (03:22)
[2020-06-19] MEDS ORDERED: GLIP10TA9 PO (03:41)
[2020-06-19] MEDS ORDERED: CARV12.511 PO (03:41)
[2020-06-19] MEDS ORDERED: AMLO-257 PO (03:41)
[2020-06-19] MEDS ORDERED: POTA-79 PO (03:41)
[2020-06-19] MEDS ORDERED: MINO2.5T3 PO (03:41)
[2020-06-19] MEDS ORDERED: METF-446 PO (03:41)
[2020-06-19] MEDS ORDERED: PRIM50TA23 PO (03:41)
[2020-06-19 04:00] VITALS: BP 154/83
[2020-06-19] MEDS: FUROSEMIDE 20MG VIAL IV SCH ×3 (05:03→22:32)
[2020-06-19] MEDS: BUDESONIDE 0.25 MG/2 ML INH IH SCH (05:23)
[2020-06-19] MEDS: INSULIN HUMULIN R 100 UNIT/ML 3ML SQ SCH ×4 (06:00→21:00)
[2020-06-19] MEDS: FAMOTIDINE 20MG VIAL IV SCH ×2 (08:39→22:20)
[2020-06-19] MEDS: SOLU-MEDROL 40MG VIAL IVP SCH ×2 (08:39→22:20)
[2020-06-19] MEDS: SPIRONOLACTONE 25 MG TAB PO SCH (08:40)
[2020-06-19] MEDS: CARVEDILOL 6.25 MG TABLET PO SCH ×2 (08:40→22:20)
[2020-06-19] MEDS: LOSARTAN 50 MG TABLET PO SCH (08:41)
[2020-06-19] MEDS: CLOPIDOGREL 75MG TAB PO SCH (08:41)
[2020-06-19] MEDS: ENOXAPARIN SODIUM 40 MG/0.4 ML SYRINGE SQ SCH (08:42)
[2020-06-19 12:14] VITALS: BP 158/91
[2020-06-19 16:00] VITALS: BP 168/80
[2020-06-19] MEDS ORDERED: IOHEXOL-350 75 ML VIAL IV ONE (16:41)
[2020-06-19] MEDS: BUDESONIDE 0.5 MG/2 ML INH IH SCH (18:57)
[2020-06-19] MEDS: INSULIN GLARGINE 100 UNITS/ML 10 ML VIAL SQ SCH (21:00)
[2020-06-19 21:17] VITALS: BP 158/79
[2020-06-19] MEDS: DOXYCYCLINE HYCLATE 100 MG TABLET PO SCH (22:20)
[2020-06-19] MEDS ORDERED: FUROSEMIDE 20MG VIAL ONE (22:30)
[2020-06-20] VITALS (7 sets, daily range): BP systolic 111–179; BP diastolic 69–90
[2020-06-20 04:14] LABS: BASOPHILS % (AUTO) 0.7 % (0.0-5.0); EOSINOPHILS % (AUTO) 0.3 % (0.0-8.0); HEMATOCRIT 36.4 % (42-54); LYMPHOCYTES % (AUTO) 10.7 % (21.0-51.0); MEAN CORPUSCULAR HEMOGLOBIN 30.7 pg (27.0-33.0); MEAN CORPUSCULAR VOLUME 93.1 fL (79-99); MONOCYTES % (AUTO) 3.1 % (3.0-13.0); NEUTROPHILS % (AUTO) 84.8 % (40.0-77.0); PLATELET COUNT (AUTO) 313 K/uL (130-400); RED BLOOD CELL COUNT(AUTO) 3.91 MIL/uL (4.50-6.20); RED CELL DISTRIBUTION WIDTH 12.4 % (11.0-15.5); WHITE BLOOD COUNT (AUTO) 7.3 K/uL (4.8-10.8)
[2020-06-20 04:28] LABS: ALBUMIN 2.9 g/dL (3.5-5.0); BILIRUBIN,TOTAL 0.3 mg/dL (0.2-1.0); CREATININE 1.2 mg/dL (0.5-1.5); POTASSIUM 3.7 mmol/L (3.5-5.1); TOTAL PROTEIN, SERUM 6.1 g/dL (6.0-8.3)
[2020-06-20 04:52] LABS: B-TYPE NATRIURETIC PEPTIDE 1210 pg/mL (0-100)
[2020-06-20] MEDS: INSULIN HUMULIN R 100 UNIT/ML 3ML SQ SCH ×4 (06:02→21:05)
[2020-06-20] MEDS: BUDESONIDE 0.5 MG/2 ML INH IH SCH ×2 (07:18→18:37)
[2020-06-20] MEDS: LOSARTAN 100 MG TABLET PO SCH (08:02)
[2020-06-20] MEDS: DOXYCYCLINE HYCLATE 100 MG TABLET PO SCH (08:02)
[2020-06-20] MEDS: CLOPIDOGREL 75MG TAB PO SCH (08:03)
[2020-06-20] MEDS: SOLU-MEDROL 40MG VIAL IVP SCH ×2 (08:03→20:52)
[2020-06-20] MEDS: CARVEDILOL 6.25 MG TABLET PO SCH ×2 (08:03→11:41)
[2020-06-20] MEDS: SPIRONOLACTONE 25 MG TAB PO SCH (08:03)
[2020-06-20] MEDS: FAMOTIDINE 20MG VIAL IV SCH (08:04)
[2020-06-20] MEDS: ENOXAPARIN SODIUM 40 MG/0.4 ML SYRINGE SQ SCH (08:04)
[2020-06-20] MEDS ORDERED: LABETALOL 20MG SYG IV PRN (08:45)
[2020-06-20] MEDS: CARVEDILOL 12.5 MG TABLET PO SCH ×2 (09:00→20:51)
[2020-06-20] MEDS: FUROSEMIDE 20MG VIAL IV SCH ×2 (10:36→16:12)
[2020-06-20] MEDS: GLIPIZIDE 5 MG TABLET PO SCH ×2 (10:37→20:50)
[2020-06-20] MEDS ORDERED: CARVEDILOL 6.25 MG TABLET PO ONE (11:39)
[2020-06-20] MEDS: MINOXIDIL 2.5 MG TAB PO SCH ×2 (11:42→20:50)
[2020-06-20] MEDS: AMLODIPINE 5 MG TAB PO SCH (11:42)
[2020-06-20] MEDS ORDERED: PHARMACY COMMUNICATION MISC SCH (13:45)
[2020-06-20] MEDS: FAMOTIDINE 20MG TAB PO SCH (20:50)
[2020-06-20] MEDS ORDERED: INSULIN GLARGINE 100 UNITS/ML 10 ML VIAL SQ SCH (21:00)
[2020-06-21 01:10] VITALS: BP 139/85
[2020-06-21 04:59] VITALS: BP 152/89
[2020-06-21] MEDS: FUROSEMIDE 20MG VIAL IV SCH (05:21)
[2020-06-21] MEDS: BUDESONIDE 0.5 MG/2 ML INH IH SCH ×2 (06:53→18:54)
[2020-06-21] MEDS ORDERED: INSULIN HUMULIN R 100 UNIT/ML 3ML SQ SCH (07:30)
[2020-06-21] MEDS: INSULIN HUMULIN R 100 UNIT/ML 3ML SQ SCH ×5 (07:44→21:30)
[2020-06-21 08:46] VITALS: BP 131/72
[2020-06-21] MEDS: CLOPIDOGREL 75MG TAB PO SCH (09:08)
[2020-06-21] MEDS: CARVEDILOL 12.5 MG TABLET PO SCH ×2 (09:08→21:28)
[2020-06-21] MEDS: SPIRONOLACTONE 25 MG TAB PO SCH (09:08)
[2020-06-21] MEDS: LOSARTAN 100 MG TABLET PO SCH (09:08)
[2020-06-21] MEDS: SOLU-MEDROL 40MG VIAL IVP SCH ×2 (09:08→21:26)
[2020-06-21] MEDS: MINOXIDIL 2.5 MG TAB PO SCH (09:08)
[2020-06-21] MEDS: AMLODIPINE 5 MG TAB PO SCH (09:10)
[2020-06-21] MEDS: FAMOTIDINE 20MG TAB PO SCH ×2 (09:11→21:28)
[2020-06-21] MEDS: GLIPIZIDE 5 MG TABLET PO SCH ×2 (09:11→21:27)
[2020-06-21] MEDS: ENOXAPARIN SODIUM 40 MG/0.4 ML SYRINGE SQ SCH (09:12)
[2020-06-21 13:33] VITALS: BP 137/86
[2020-06-21 17:04] VITALS: BP 156/77
[2020-06-21 20:00] VITALS: BP 154/76
[2020-06-21] MEDS ORDERED: INSULIN GLARGINE 100 UNITS/ML 10 ML VIAL SQ SCH (21:00)
[2020-06-22] VITALS: BP 141/77
[2020-06-22 04:00] VITALS: BP 167/82
[2020-06-22 04:17] LABS: POTASSIUM 3.6 mmol/L (3.5-5.1)
[2020-06-22] MEDS: INSULIN HUMULIN R 100 UNIT/ML 3ML SQ SCH ×3 (06:10→11:37)
[2020-06-22] MEDS: BUDESONIDE 0.5 MG/2 ML INH IH SCH (07:04)
[2020-06-22 07:53] VITALS: BP 159/96
[2020-06-22] MEDS ORDERED: SPIR25TA PO (08:08)
[2020-06-22] MEDS ORDERED: LOSA100T2 PO (08:08)
[2020-06-22] MEDS ORDERED: FAMO20TA8 PO (08:08)
[2020-06-22] MEDS ORDERED: FURO40TA7 PO (08:08)
[2020-06-22] MEDS ORDERED: MINOXIDIL 2.5 MG TAB PO SCH (09:00)
[2020-06-22] MEDS ORDERED: FUROSEMIDE 40 MG TABLET PO SCH (09:00)
[2020-06-22] MEDS ORDERED: MINO2.5T3 PO (09:19)
[2020-06-22] MEDS: FAMOTIDINE 20MG TAB PO SCH (09:26)
[2020-06-22] MEDS: AMLODIPINE 5 MG TAB PO SCH (09:26)
[2020-06-22] MEDS: CLOPIDOGREL 75MG TAB PO SCH (09:26)
[2020-06-22] MEDS: SPIRONOLACTONE 25 MG TAB PO SCH (09:27)
[2020-06-22] MEDS: GLIPIZIDE 5 MG TABLET PO SCH (09:27)
[2020-06-22] MEDS: CARVEDILOL 12.5 MG TABLET PO SCH (09:27)
[2020-06-22] MEDS: ENOXAPARIN SODIUM 40 MG/0.4 ML SYRINGE SQ SCH (09:28)
[2020-06-22] MEDS: LOSARTAN 100 MG TABLET PO SCH (09:28)
[2020-06-22] MEDS: SOLU-MEDROL 40MG VIAL IVP SCH (09:29)
[2020-06-22 12:00] VITALS: BP 151/78
[2020-07-08] MEDS ORDERED: CETI10TA87 PO (18:02)
[2020-07-10] MEDS ORDERED: CLIN-141 PO (11:44)
== END 2020-06-22 15:00 | disposition home or self-care (01) | DRG 291 ==
LOC: EDH 00:06 → EDHIP 04:00 → 4BH 06-19 00:23 → 4DH 06-19 11:22
PROVIDERS: ADMIT Internal Medicine; ATTEND Internal Medicine
DX: I11.0 Hypertensive heart disease with heart failure (principal); J96.01 Acute respiratory failure with hypoxia; J44.1 Chronic obstructive pulmonary disease with (acute) exacerbation; J98.11 Atelectasis; I50.43 Acute on chronic combined systolic (congestive) and diastolic (congestive) heart failure; I44.1 Atrioventricular block, second degree; E11.51 Type 2 diabetes mellitus with diabetic peripheral angiopathy without gangrene; I27.20 Pulmonary hypertension, unspecified; I25.10 Atherosclerotic heart disease of native coronary artery without angina pectoris; Z20.822 Contact with and (suspected) exposure to COVID-19; Z79.84 Long term (current) use of oral hypoglycemic drugs; Z88.6 Allergy status to analgesic agent; Z95.0 Presence of cardiac pacemaker; Z79.899 Other long term (current) drug therapy; Z87.891 Personal history of nicotine dependence; Z97.4 Presence of external hearing-aid
CPT/HCPCS: 36415; 36600; 71045; 71275; 80048; 80053; 82040; 82550; 82803; 82948; 83036; 83605; 83735; 83874; 83880; 84100; 84145; 84484; 85025; 85378; 85610; 85730; 87040; 87426; 87804; 93005; 93970; 94640; 94664; G0378; J1650; J1815; J1940; J2920; J2930; J3490; Q9967; U0003

== ENCOUNTER 2020-07-07 08:35 | Observation (INO) | payer OTHER ==
[~2020-07-07] VITALS: Ht 177.8 cm; Wt 70.1 kg
[~2020-07-07 08:35] MED LIST changes: +CARV12.511 PO; +FAMO20TA8 PO; +FURO40TA7 PO; +LOSA100T2 PO; -POTA-202 PO; +POTA-79 PO; +SPIR25TA PO
[2020-07-07 09:02] LABS: ABG BASE EXCESS -2.2 mmol/L (-2.0-3.0); ABG HCO3 23.1 mmol/L (21.0-28.0); ABG OXYGEN SATURATION 87.9 % (95.0-99.0); ABG PCO2 42 mmHg (35-48)
[2020-07-07 09:05] LABS: BASOPHILS % (AUTO) 0.5 % (0.0-5.0); EOSINOPHILS % (AUTO) 0.9 % (0.0-8.0); HEMATOCRIT 35.4 % (42-54); LYMPHOCYTES % (AUTO) 7.5 % (21.0-51.0); MEAN CORPUSCULAR HGB CONC 32.8 g/dL (32.0-36.0); MEAN CORPUSCULAR VOLUME 94.7 fL (79-99); NEUTROPHILS % (AUTO) 86.5 % (40.0-77.0); PLATELET COUNT (AUTO) 286 K/uL (130-400); RED BLOOD CELL COUNT(AUTO) 3.74 MIL/uL (4.50-6.20); RED CELL DISTRIBUTION WIDTH 12.4 % (11.0-15.5); WHITE BLOOD COUNT (AUTO) 9.7 K/uL (4.8-10.8)
[2020-07-07 09:19] LABS: INR 1.02 (0.85-1.15); PROTHROMBIN TIME 10.9 SEC (9.6-11.6)
[2020-07-07 09:20] LABS: PARTIAL THROMBOPLASTIN TIME 24.7 SEC (26.3-35.5)
[2020-07-07 09:24] LABS: ALANINE AMINOTRANSFERASE 38 U/L (12-78); ALBUMIN 3.1 g/dL (3.5-5.0); ASPARTATE AMINOTRANSFERASE 26 U/L (10-37); BILIRUBIN,TOTAL 0.5 mg/dL (0.2-1.0); CARBON DIOXIDE 26 mmol/L (21-32); CHLORIDE 100 mmol/L (101-111); CREATINE KINASE, TOTAL 31 U/L (21-232); CREATININE 1.1 mg/dL (0.5-1.5); GLOMERULAR FILTR. RATE CALC 68 mL/min (>60); GLUCOSE,RANDOM 392 mg/dL (70-105); MYOGLOBIN 43 ng/mL (10-92); POTASSIUM 4.4 mmol/L (3.5-5.1); SODIUM SERUM 137 mmol/L (136-145); TROPONIN I < 0.04 ng/mL (0.00-0.06); UREA NITROGEN, BLOOD 12 mg/dL (7-18)
[2020-07-07] MEDS ORDERED: FUROSEMIDE 10 MG/ML 4ML VIAL ONE ×2 (09:41→20:04)
[2020-07-07] MEDS ORDERED: CEFTRIAXONE SODIUM 1 GM ONE (09:41)
[2020-07-07 10:59] LABS: APPEARANCE,URINE Clear (CLEAR); BILIRUBIN,URINE Negative (NEGATIVE); COLOR,URINE Yellow (YELLOW); GLUCOSE, URINE (UA) >=1000 mg/dL (NEGATIVE); KETONES,URINE Negative (NEGATIVE); LEUKOCYTE ESTERASE ,URINE Negative (NEGATIVE); NITRATE,URINE Negative (NEGATIVE); OCCULT BLOOD,URINE Negative (NEGATIVE); PH,URINE 6.5 (5.0-8.0); PROTEIN,URINE POS 2+ mg/dL (NEGATIVE); UROBILINOGEN,URINE 0.2 mg/dL (0.2-1.0)
[2020-07-07 11:26] LABS: BACTERIA,URINE Rare /HPF (None Seen); MUCUS,URINE Few LPF (None Seen); SQUAMOUS EPITHELIAL CELL,UR Rare /HPF (0-2)
[2020-07-07 14:50] LABS: ABG BASE EXCESS 4.3 mmol/L (-2.0-3.0); ABG HCO3 29.6 mmol/L (21.0-28.0); ABG OXYGEN SATURATION 98.6 % (95.0-99.0); ABG PCO2 47 mmHg (35-48)
[2020-07-07] MEDS ORDERED: MORPHINE SULFATE 2 MG/ML 1ML SYG ONE (14:50)
[2020-07-07] MEDS ORDERED: ACETAMINOPHEN 325 MG TAB PO PRN ×2 (15:00)
[2020-07-07] MEDS ORDERED: POTASSIUM CHLORIDE 10% ELIXIR 20 MEQ/15 ML UDCUP PO PRN (15:00)
[2020-07-07] MEDS ORDERED: LACTULOSE 20 GM/30 ML UDCUP PO PRN (15:00)
[2020-07-07] MEDS ORDERED: POTASSIUM CHLORIDE 10MEQ/100ML 100 ML IV PRN (15:00)
[2020-07-07] MEDS ORDERED: NITROGLYCERIN 0.4 MG SL TAB SL PRN (15:00)
[2020-07-07] MEDS ORDERED: LIDOCAINE HCL-MPF 1% 2ML VIAL IV PRN (15:00)
[2020-07-07] MEDS ORDERED: ONDANSETRON HCL 4 MG/2 ML VIAL IV PRN (15:00)
[2020-07-07] MEDS ORDERED: IPRATROPIUM/ALBUTEROL SULFATE 3 ML SOLUTION IH PRN (15:15)
[2020-07-07] MEDS: INSULIN HUMULIN R 100 UNIT/ML 3ML SQ SCH ×2 (16:30→21:00)
[2020-07-07] MEDS ORDERED: INSULIN HUMULIN R 100 UNIT/ML 3ML ONE (20:04)
[2020-07-07] MEDS ORDERED: FAMOTIDINE 20MG TAB 20 MG TAB ONE (20:04)
[2020-07-07] MEDS: FUROSEMIDE 10 MG/ML 4ML VIAL IVP SCH (21:00)
[2020-07-07] MEDS: FAMOTIDINE 20MG TAB 20 MG TAB PO SCH (21:00)
[2020-07-07] MEDS ORDERED: ALBUTEROL INHALER 90MCG/INH IH ONE (21:04)
[2020-07-07] MEDS ORDERED: ALBUTEROL INHALER 90MCG/INH IH PRN (21:45)
[2020-07-08 05:16] LABS: BASOPHILS % (AUTO) 0.9 % (0.0-5.0); EOSINOPHILS % (AUTO) 2.1 % (0.0-8.0); HEMATOCRIT 35.6 % (42-54); LYMPHOCYTES % (AUTO) 16.6 % (21.0-51.0); MEAN CORPUSCULAR HEMOGLOBIN 29.9 pg (27.0-33.0); MEAN CORPUSCULAR HGB CONC 32.3 g/dL (32.0-36.0); MEAN CORPUSCULAR VOLUME 92.5 fL (79-99); NEUTROPHILS % (AUTO) 74.1 % (40.0-77.0); PLATELET COUNT (AUTO) 275 K/uL (130-400); RED BLOOD CELL COUNT(AUTO) 3.85 MIL/uL (4.50-6.20); RED CELL DISTRIBUTION WIDTH 12.2 % (11.0-15.5); WHITE BLOOD COUNT (AUTO) 6.7 K/uL (4.8-10.8)
[2020-07-08 05:32] LABS: B-TYPE NATRIURETIC PEPTIDE 1310 pg/mL (0-100)
[2020-07-08 05:49] LABS: POTASSIUM 3.6 mmol/L (3.5-5.1)
[2020-07-08] MEDS: INSULIN HUMULIN R 100 UNIT/ML 3ML SQ SCH ×3 (07:30→20:11)
[2020-07-08] MEDS: ENOXAPARIN SODIUM 40 MG/0.4 ML SYRINGE SQ SCH (09:00)
[2020-07-08] MEDS: FUROSEMIDE 10 MG/ML 4ML VIAL IVP SCH ×2 (09:00→20:06)
[2020-07-08] MEDS ORDERED: FUROSEMIDE 10 MG/ML 4ML VIAL ONE (09:15)
[2020-07-08] MEDS ORDERED: INSULIN HUMULIN R 100 UNIT/ML 3ML ONE (09:16)
[2020-07-08] MEDS ORDERED: ENOXAPARIN SODIUM 40 MG/0.4 ML SYRINGE SQ ONE (09:16)
[2020-07-08 16:30] VITALS: BP 170/95
[2020-07-08] MEDS ORDERED: ALBU18HF7 IH (18:02)
[2020-07-08] MEDS ORDERED: CETI10TA86 PO (18:02)
[2020-07-08] MEDS ORDERED: METO50TA18 PO (18:02)
[2020-07-08] MEDS: FAMOTIDINE 20MG TAB 20 MG TAB PO SCH (20:05)
[2020-07-08] MEDS: POTASSIUM CHLORIDE 20 MEQ ERTAB PO PRN ×2 (20:06→22:56)
[2020-07-08 20:45] VITALS: BP 172/95
[2020-07-08 22:52] VITALS: BP 160/74
[2020-07-09 05:08] VITALS: BP 156/77
[2020-07-09] MEDS: INSULIN HUMULIN R 100 UNIT/ML 3ML SQ SCH ×4 (06:15→20:47)
[2020-07-09] MEDS ORDERED: ALBUTEROL INHALER 90MCG/INH IH PRN (07:15)
[2020-07-09 08:00] VITALS: BP 166/94
[2020-07-09] MEDS ORDERED: NON-FORMULARY MEDICATION 1 EACH (Cetirizine HCl 10 MG) PO SCH (09:00)
[2020-07-09] MEDS ORDERED: NON-FORMULARY MEDICATION 1 EACH (Potassium Chloride 20 MEQ) PO SCH (09:00)
[2020-07-09] MEDS: FUROSEMIDE 10 MG/ML 4ML VIAL IVP SCH ×2 (09:11→20:46)
[2020-07-09] MEDS: ENOXAPARIN SODIUM 40 MG/0.4 ML SYRINGE SQ SCH (09:12)
[2020-07-09 12:00] VITALS: BP 165/78
[2020-07-09] MEDS: MINOXIDIL 2.5 MG TAB PO SCH (13:16)
[2020-07-09] MEDS: CLOPIDOGREL BISULFATE 75 MG TAB PO SCH (13:17)
[2020-07-09] MEDS: SPIRONOLACTONE 25 MG TAB PO SCH (13:17)
[2020-07-09] MEDS: CARVEDILOL 12.5 MG TABLET PO SCH ×2 (13:17→20:47)
[2020-07-09] MEDS: LOSARTAN 100 MG TABLET PO SCH (13:17)
[2020-07-09] MEDS: AMLODIPINE BESYLATE 5 MG TAB PO SCH (13:18)
[2020-07-09] MEDS: PRIMIDONE 50 MG TAB PO SCH ×2 (13:18→20:47)
[2020-07-09] MEDS: CEFTRIAXONE SODIUM 1 GM IVP SCH (13:18)
[2020-07-09 16:00] VITALS: BP 146/78
[2020-07-09 20:00] VITALS: BP 151/71
[2020-07-09] MEDS: FAMOTIDINE 20MG TAB 20 MG TAB PO SCH (20:47)
[2020-07-10] VITALS: BP 130/65
[2020-07-10 04:00] VITALS: BP 153/80
[2020-07-10 06:02] LABS: EOSINOPHILS % (AUTO) 2.1 % (0.0-8.0); HEMATOCRIT 39.3 % (42-54); LYMPHOCYTES % (AUTO) 15.6 % (21.0-51.0); MEAN CORPUSCULAR HEMOGLOBIN 30.6 pg (27.0-33.0); MEAN CORPUSCULAR HGB CONC 33.6 g/dL (32.0-36.0); MONOCYTES % (AUTO) 7.6 % (3.0-13.0); NEUTROPHILS % (AUTO) 73.3 % (40.0-77.0); PLATELET COUNT (AUTO) 322 K/uL (130-400); RED BLOOD CELL COUNT(AUTO) 4.32 MIL/uL (4.50-6.20); RED CELL DISTRIBUTION WIDTH 12.1 % (11.0-15.5)
[2020-07-10] MEDS: INSULIN HUMULIN R 100 UNIT/ML 3ML SQ SCH ×2 (06:18→12:09)
[2020-07-10 06:28] LABS: CREATININE 1.4 mg/dL (0.5-1.5); POTASSIUM 3.7 mmol/L (3.5-5.1)
[2020-07-10 06:32] LABS: B-TYPE NATRIURETIC PEPTIDE 292 pg/mL (0-100)
[2020-07-10 08:00] VITALS: BP 147/74
[2020-07-10] MEDS ORDERED: POTASSIUM CHLORIDE 20 MEQ ERTAB PO SCH (09:00)
[2020-07-10] MEDS ORDERED: CETIRIZINE HCL 5 MG TABLET PO SCH (09:00)
[2020-07-10] MEDS: CLOPIDOGREL BISULFATE 75 MG TAB PO SCH (09:36)
[2020-07-10] MEDS: SPIRONOLACTONE 25 MG TAB PO SCH (09:37)
[2020-07-10] MEDS: MINOXIDIL 2.5 MG TAB PO SCH (09:37)
[2020-07-10] MEDS: CARVEDILOL 12.5 MG TABLET PO SCH (09:37)
[2020-07-10] MEDS: LOSARTAN 100 MG TABLET PO SCH (09:37)
[2020-07-10] MEDS: PRIMIDONE 50 MG TAB PO SCH (09:37)
[2020-07-10] MEDS: AMLODIPINE BESYLATE 5 MG TAB PO SCH (09:38)
[2020-07-10] MEDS: CEFTRIAXONE SODIUM 1 GM IVP SCH (09:38)
[2020-07-10] MEDS: FUROSEMIDE 10 MG/ML 4ML VIAL IVP SCH (09:39)
[2020-07-10] MEDS: ENOXAPARIN SODIUM 40 MG/0.4 ML SYRINGE SQ SCH (09:39)
[2020-07-10 11:12] VITALS: BP 143/58
[2020-07-10] MEDS ORDERED: CLIN300C10 PO (11:44)
== END 2020-07-10 16:26 | disposition home or self-care (01) ==
LOC: EDH 08:35 → EDHIP 07-08 14:46 → 4CH 07-08 16:34
PROVIDERS: ADMIT Internal Medicine; ATTEND Internal Medicine
DX: I11.0 Hypertensive heart disease with heart failure (principal); I50.42 Chronic combined systolic (congestive) and diastolic (congestive) heart failure; Z20.828 Contact with and (suspected) exposure to other viral communicable diseases; N39.0 Urinary tract infection, site not specified; J44.1 Chronic obstructive pulmonary disease with (acute) exacerbation; J96.21 Acute and chronic respiratory failure with hypoxia; J90 Pleural effusion, not elsewhere classified; E11.51 Type 2 diabetes mellitus with diabetic peripheral angiopathy without gangrene; G47.33 Obstructive sleep apnea (adult) (pediatric); I25.10 Atherosclerotic heart disease of native coronary artery without angina pectoris; Z87.891 Personal history of nicotine dependence; Z95.0 Presence of cardiac pacemaker; Z79.01 Long term (current) use of anticoagulants; Z79.84 Long term (current) use of oral hypoglycemic drugs; Z79.899 Other long term (current) drug therapy; Z88.6 Allergy status to analgesic agent
CPT/HCPCS: 36415 ×4; 36600 ×2; 71045; 80048 ×2; 80053; 81001; 82550; 82803 ×2; 82948 ×11; 83605 ×2; 83874; 83880 ×3; 84132; 84145; 84484; 85025 ×3; 85610; 85730; 86140; 86900; 86901; 87040 ×2; 87077; 87088; 87186; 87426; 93005; 94664; 96372 ×3; 96374; 96375; 96376 ×2; 99285; G0378 ×48; J0696 ×3; J1650 ×3; J1815 ×7; J1940 ×7; U0003

== ENCOUNTER 2020-08-19 03:08 | Emergency (ER) | payer OTHER ==
[~2020-08-19 03:08] MED LIST changes: +ALBU18HF7 IH; +CETI10TA86 PO; -CILO100T PO; +CLIN300C10 PO; +METO50TA18 PO
[2020-08-19] MEDS ORDERED: METHYLPREDNISOLONE SOD SUCC 40MG/ML 1ML ONE (03:27)
[2020-08-19 03:40] LABS: BASOPHILS % (AUTO) 1.1 % (0.0-5.0); EOSINOPHILS % (AUTO) 3.3 % (0.0-8.0); HEMATOCRIT 35.3 % (42-54); MEAN CORPUSCULAR HEMOGLOBIN 29.7 pg (27.0-33.0); MEAN CORPUSCULAR VOLUME 87.4 fL (79-99); MONOCYTES % (AUTO) 8.8 % (3.0-13.0); NEUTROPHILS % (AUTO) 64.4 % (40.0-77.0); PLATELET COUNT (AUTO) 310 K/uL (130-400); RED BLOOD CELL COUNT(AUTO) 4.04 MIL/uL (4.50-6.20); RED CELL DISTRIBUTION WIDTH 11.9 % (11.0-15.5); WHITE BLOOD COUNT (AUTO) 5.2 K/uL (4.8-10.8)
[2020-08-19] MEDS ORDERED: IPRATROPIUM/ALBUTEROL SULFATE 3 ML SOLUTION IH ONE (03:52)
[2020-08-19 03:56] LABS: ALBUMIN 3.2 g/dL (3.5-5.0); BILIRUBIN,TOTAL 0.2 mg/dL (0.2-1.0); CREATININE 1.3 mg/dL (0.5-1.5); POTASSIUM 3.3 mmol/L (3.5-5.1)
[2020-08-19 04:01] LABS: B-TYPE NATRIURETIC PEPTIDE 232 pg/mL (0-100)
[2020-08-19] MEDS ORDERED: INSULIN HUMULIN R 100 UNIT/ML 3ML ONE (04:14)
== END 2020-08-19 05:51 | disposition home or self-care (01) ==
LOC: EDH 03:08
DX: J44.1 Chronic obstructive pulmonary disease with (acute) exacerbation (principal); E11.65 Type 2 diabetes mellitus with hyperglycemia; I10 Essential (primary) hypertension; Z87.891 Personal history of nicotine dependence; Z88.6 Allergy status to analgesic agent
CPT/HCPCS: 36415; 71045; 80053; 82550; 82948; 83880; 84484; 85025; 93005; 94640; 96374; 96375; 99285; J1815; J2920